=== PATIENT | female | born 1965 | race Caucasian/White ===

== ENCOUNTER 2017-03-23 22:31 | Emergency (ER) | payer OTHER ==
[2017-03-23 22:46] VITALS: BP 164/80; O2SAT 99
[2017-03-23] MEDS ORDERED: Marcaine 0.5% SDV 10 ML IJ ONE (22:49)
[2017-03-23] MEDS ORDERED: Marcaine 0.5% SDV 10 ML ONE (22:52)
[2017-03-23] MEDS ORDERED: Adacel Vial IM ONE ×2 (23:03→23:09)
--- NOTE | 2017-03-23 23:55 | ERPHSYRPT ---
- History of Present Illness Time Seen by Provider: 03/23/17 22:43 Source: patient Patient Subjective Stated Complaint: pt was opening a window when the top window came down broke and cut the tip of her right index finger Triage Nursing Assessment: pt is awake and alert and able to answer questions her finger in warped in a towel the flap on the finger tip is attached Physician History: CC: cut finger Hx: 52 y/o patient of Dr Phoenix with hx of DM. She cut right index finger when a window sill dropped on it. Last tetanus 5 years ago. Pain was severe. Injury tonite. Occurred: just prior to arrival Severity of Pain-Max: severe Severity of Pain-Current: moderate Extremities Pain Location: 2nd finger: right Allergies/Adverse Reactions: morphine Allergy (Severe, Verified 03/23/17 22:56) Vomiting Home Medications: Potassium Chloride [K-Dur] 10 meq PO DAILY 01/20/13 [History] Canagliflozin [Invokana] 100 mg PO DAILY 12/13/15 [History] Hydrochlorothiazide 50 mg PO BID 12/13/15 [History] Insulin Detemir [Levemir Flextouch] 20 units SQ QHS 12/13/15 [History] Insulin Lispro [Humalog Kwikpen U-100] 13 units SQ BID PRN 12/13/15 [History] Hx Influenza Vaccination/Date Given: Yes (07/2012) Hx Pneumococcal Vaccination/Date Given: No - Review of Systems Constitutional: No Symptoms Musculoskeletal: Injury (right index finger) Neurological: No Focal Weakness, No Parasthesia - Past Medical History Pertinent Past Medical History: Yes Neurological History: Migraines ENT History: No Pertinent History Cardiac History: Hypertension Respiratory History: Asthma Endocrine Medical History: Diabetes Type II Musculoskeletal History: Arthritis GI Medical History: GERD History: No Pertinent History Psycho-Social History: Depression Female Reproductive Disorders: No Pertinent History - Past Surgical History Past Surgical History: Yes Neuro Surgical History: No Pertinent History Cardiac: No Pertinent History Respiratory: No Pertinent History Gastrointestinal: Cholecystectomy Genitourinary: No Pertinent History Musculoskeletal: No Pertinent History Female Surgical History: Section, Hysterectomy Other Surgical History: cancer-uterine, fibrosis - Social History Smoking Status: Never smoker Exposure to second hand smoke: No Drug Use: none Patient Lives Alone: No - Female History Hx Last Menstrual Period: hyst - Nursing Vital Signs Nursing Vital Signs: Initial Vital Signs Temperature 98.3 F Temperature Source Oral Pulse Rate 83 Respiratory Rate 16 Blood Pressure [] 164/80 Pain Intensity 4 - Physical Exam General Appearance: alert, other (anxious) Neck Exam: supple Cardiovascular/Respiratory Exam: regular rate/rhythm Mental Status Exam: alert, oriented x 3, cooperative Skin Exam: warm, dry SpO2 Interpretation: normal SpO2: 99 Oxygen Delivery: Room Air Comments: 2cm stellate laceration right index finger not involving the nail. Good cap refill. ROM intact. Procedures - Laceration/Wound Repair right index finger Wound Length (cm): 2 Wound's Depth, Shape: stellate, contused tissue, into subcut Wound Explored: no foreign body noted Irrigated: Yes Hibiclens Prep: Yes Anesthesia: digital block, marcaine 0.5 Volume Anesthetic (ccs): 3 Wound Repaired With: sutures Suture Size/Type: 4-0, prolene Number of Sutures: 6 Layer Closure?: No Sterile Dressing Applied?: Yes - Course Nursing assessment & vital signs reviewed: Yes - Radiology Exams right hand X-ray Interpretation: No Fracture Ordered Tests: Active Orders 24 hr Category Date Time Status ACCUCHECK [Accucheck] STAT Care 03/23/17 23:31 Active Prepare for Sutures STAT Care 03/23/17 23:03 Active Sutures STAT Care 03/23/17 23:03 Active Wound Care STAT Care 03/23/17 22:49 Active HAND (MINIMUM 3 VIEWS) Stat Exams 03/23/17 23:03 Taken Medication Summary Discontinued Medications Generic Name Dose Route Start Last Admin Trade Name Freq PRN Reason Stop Dose Admin Bupivacaine HCl 5 ml 03/23/17 22:49 03/23/17 22:54 Marcaine 0.5% Sdv 10 Ml IJ 03/23/17 22:50 5 ml STAT ONE Administration Bupivacaine HCl Confirm 03/23/17 22:52 Marcaine 0.5% Sdv 10 Ml Administered 03/23/17 22:53 Dose 10 ml .ROUTE .STK-MED ONE Diphtheria/Tetanus/Acell Pertussis 0.5 ml 03/23/17 23:03 03/23/17 23:11 Adacel Vial IM 03/23/17 23:04 0.5 ml .ONCE ONE Administration Diphtheria/Tetanus/Acell Pertussis Confirm 03/23/17 23:09 Adacel Vial Administered 03/23/17 23:10 Dose 0.5 ml IM .STSkicka Tårta-MED ONE - Progress Progress Note: 03/24/17 00:12 Laceration instructions given. She is already on augmenting for tonsillitis. - Departure Time of Disposition: 00:13 Departure Disposition: Home Clinical Impression: Laceration of right index finger Condition: Stable Critical Care Time: No Referrals: TREE PHOENIX [Primary Care Provider] - Instructions: Care for a Laceration After Repair Additional Instructions: LACERATION CARE 1. Do not use peroxide, merthiolate, alcohol, or betadine. 2. Keep wound clean and dry. 3. Change dressing if it becomes wet or soiled. 4. If you must work, wear protective covering. 5. You may return to the emergency department or see your family physician for suture removal. 6. See your family physician or return to the emergency department for any of the following signs or symptoms: A. Redness B. Swelling C. Discolored drainage D. Red streaks E. Elevated temperature F. Other signs of infection Elevate hand. Suture removal in 10 days.
[2017-03-24 00:42] VITALS: PULSE 80
--- NOTE | 2017-03-24 08:30 | XRAY ---
Indication: Second finger crush injury. Comparison: None 3 views of the right hand demonstrates distal second finger tip soft tissue laceration. No other bony, articular, or soft tissue abnormalities.
== END 2017-03-24 00:42 | disposition home or self-care (01) ==
LOC: ED 22:31
PROC: 0HQFXZZ Repair Right Hand Skin, External Approach (ICD-10-PCS; principal; 2017-03-24)
DX: S61.210A Laceration without foreign body of right index finger without damage to nail, initial encounter (principal); W25.XXXA Contact with sharp glass, initial encounter
CPT/HCPCS: 12001; 73130; 82962; 90471; 90715; 99283; 99284

== ENCOUNTER 2017-09-02 00:32 | Emergency (ER) | payer BC ==
[2017-09-02] MEDS ORDERED: Hydromorphone 1 mg/ml Ampule IV ONE (01:08)
[2017-09-02] MEDS ORDERED: BENADRYL 50 MG/ML IV ONE (01:08)
[2017-09-02] MEDS ORDERED: TORAdol 30 mg Injection IV ONE (01:08)
[2017-09-02] MEDS ORDERED: Celestone Soluspan 6MG/ML IM ONE (01:09)
[2017-09-02] MEDS ORDERED: BENADRYL 50 MG/ML ONE (01:14)
[2017-09-02] MEDS ORDERED: Hydromorphone 1 mg/ml Ampule ONE (01:14)
[2017-09-02] MEDS ORDERED: Sodium Chloride 0.9% 1000 ML 1,000 ML IV SCH (01:15)
[2017-09-02] MEDS ORDERED: Sodium Chloride 0.9% 1000 ML 1,000 ML ONE (01:16)
[2017-09-02] MEDS ORDERED: Celestone Soluspan 6MG/ML ONE (01:16)
[2017-09-02] MEDS ORDERED: TORAdol 30 mg Injection ONE (01:18)
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
[2017-09-02] MEDS ORDERED: NovoLOG Insulin SQ ONE (01:52)
[2017-09-02] MEDS ORDERED: NovoLOG Insulin ONE (01:59)
[2017-09-02] MEDS ORDERED: NORCO 5/325 MG PO ONE (02:03)
[2017-09-02] MEDS ORDERED: NORCO 5/325 MG ONE (02:05)
[2017-09-02 02:39] VITALS: BP 107/53; PULSE 86; O2SAT 93
--- NOTE | 2017-09-02 09:02 | XRAY ---
Indication: Left back/hip pain. Sciatica. Comparison: None 5 views of the lumbar spine demonstrates 5 lumbar vertebral segments in normal alignment with minimal multilevel anterior endplate spurring and L5-S1 degenerative changes as evidenced by disc space narrowing, vacuum disc phenomenon, and bilateral facet hypertrophy. No acute fracture, subluxation, or pars intra-articularis defect. Incidental moderate aortic calcifications and cholecystectomy clips. Impression: Nonacute lumbar spine with chronic features.
== END 2017-09-02 02:40 | disposition home or self-care (01) ==
LOC: ED 00:32
DX: M54.42 Lumbago with sciatica, left side (principal); E11.9 Type 2 diabetes mellitus without complications; M79.605 Pain in left leg; Z79.4 Long term (current) use of insulin; I10 Essential (primary) hypertension; Z79.899 Other long term (current) drug therapy
CPT/HCPCS: 72110; 82962; 96360; 96372; 96374; 96375; 99284; J0702; J1170; J1200; J1885; A9270-GY

== ENCOUNTER 2025-09-17 05:55 | Day surgery (SDC) | payer OTHER ==
[2025-09-17] MEDS ORDERED: Lactated Ringers 1,000 ML IV ONE ×2 (05:59→08:14)
[2025-09-17] MEDS ORDERED: CEFAZOLIN SODIUM ONE (05:59)
[2025-09-17] MEDS: Lactated Ringers 1,000 ML IV SCH (06:09)
[2025-09-17 06:30] VITALS: RESP 14
[2025-09-17 07:15] LABS: Calcium 8.8 mg/dL (8.4-10.2); Carbon Dioxide 28.0 mmol/L (22-30); Creatinine 1 0.49 mg/dL (0.52-1.04); EST GLOMERULAR FILTRATION RATE 109.2 ML/MIN; Glucose 156.0 mg/dL (74-106); Potassium 3.8 mmol/L (3.5-5.1)
[2025-09-17] MEDS ORDERED: Versed 2 MG/2 ML Injection ONE (07:46)
[2025-09-17] MEDS ORDERED: propofoL IV ONE (07:46)
[2025-09-17] MEDS ORDERED: SUBLIMAZE 100 MCG/2 ML ONE (07:46)
[2025-09-17] MEDS ORDERED: Xylocaine-Mpf 2% 5 Ml Vial ONE (08:12)
[2025-09-17] MEDS ORDERED: Sensorcaine 0.25% 10 ML ONE (08:14)
[2025-09-17] MEDS ORDERED: Ephedrine Sulfate 50 MG/ML ONE (08:17)
[2025-09-17 09:18] VITALS: TEMP 97.3; O2SAT 97
[2025-09-17 09:30] VITALS: BP 148/71; PULSE 78
--- NOTE | 2025-09-20 08:33 | OP ---
SURGERY DATE/TIME: 09/17/2025 [id number] PREOPERATIVE DIAGNOSIS: Left carpal tunnel syndrome. POSTOPERATIVE DIAGNOSIS: Left carpal tunnel syndrome. PROCEDURE: Left carpal tunnel release. SURGEON: William Killian MD SAFETY PHYSICIAN: None. ANESTHESIA: General. INDICATIONS: The patient is a 60-year-old female who presented with a several-year history of left hand pain, numbness, and tingling. EMG studies were obtained which revealed moderate to severe left carpal tunnel syndrome. We discussed options, and she wants to proceed with left carpal tunnel release. I explained risks associated with the procedure including, but not limited to, infection, pain, bleeding, damage to surrounding structures, stiffness, failure to improve symptoms, and need for further procedures. After explaining all the risks, benefits, and alternative treatment options, she desired to proceed with surgery. DESCRIPTION OF PROCEDURE AND FINDINGS: The patient was taken to the operating room and placed in supine position. IV antibiotics were administered and general anesthesia was administered as well. A tourniquet was applied to the left upper arm. The left upper extremity was then prepped and draped in standard sterile fashion. An Esmarch was used to exsanguinate the limb and the tourniquet was inflated to 250 mmHg. At this time, a longitudinal incision was then made at the base of the palm, just ulnar to the finger crease. Dissection was carried down and the transverse carpal ligament was identified. The transverse carpal ligament was transected longitudinally, protecting the underlying structures. The distal volar forearm fascia was then released proximally using scissors. The wound was then thoroughly irrigated with normal saline and the tourniquet was released. The incision was then approximated with 3-0 nylon sutures in a simple interrupted fashion. The nishant-incisional area was injected with 0.25% Marcaine. A sterile dressing was then applied and the tourniquet was released. The patient was then awakened from anesthesia and taken to the recovery room in stable condition.
== END 2025-09-17 09:39 | disposition home or self-care (01) ==
LOC: SDC 05:55
PROVIDERS: ATTEND Orthopaedic Surgery
DX: G56.02 Carpal tunnel syndrome, left upper limb (principal)